=== PATIENT | male | born 1985 | race American Indian/Alaskan Native ===

== ENCOUNTER 2019-05-30 13:38 | Day surgery (SDC) | payer BC ==
[~2019-05-30] VITALS: Ht 167.6 cm; Wt 77.3 kg
[2019-05-30] MEDS ORDERED: PRIL40 PO (14:28)
[2019-05-30 14:29] VITALS: BP 117/82; PULSE 82; TEMP 97.7
[2019-05-30 16:30] VITALS: BP 119/83; PULSE 72; TEMP 98
[2019-05-30 16:45] VITALS: BP 106/69; PULSE 65
[2019-05-30 17:00] VITALS: BP 124/69; PULSE 71
--- NOTE | 2019-05-30 17:24 | NUR ---
Pt returned via cart to [facility] 6. A&O. and son in room. Tolerated water, pudding and jello. C/O some nausea after sitting upright in chair. Given saltines and sprite to settle stomach. IV removed and pressure dressing applied. Discharge teaching completed, pt and verbalized understanding. Pt dressed and taken via wheelchair to private vehicle for dc home with driving.
== END 2019-05-30 17:28 | disposition home or self-care (01) ==
LOC: SDCO 13:38
DX: K22.2 Esophageal obstruction (principal); K20.0 Eosinophilic esophagitis; Z79.899 Other long term (current) drug therapy; J45.909 Unspecified asthma, uncomplicated
CPT/HCPCS: J2250; J3010; J7030

== ENCOUNTER → 2022-03-15 | Outpatient (CLI) | payer BC ==
[~2022-03-15] MED LIST: PRIL40 PO
== END ==
LOC: COL.RAD 07:03
DX: K76.0 Fatty (change of) liver, not elsewhere classified (principal); K42.9 Umbilical hernia without obstruction or gangrene

== ENCOUNTER 2024-06-30 08:44 | Emergency (ER) | payer BC ==
[~2024-06-30] VITALS: Ht 170.2 cm; Wt 84.1 kg
[~2024-06-30 08:44] MED LIST changes: +MAG-OX 400400 MG/TAB PO; +MULTI VITAMINS1 TAB PO; +NATURAL POTASS595 MG; +NORCO 325 MG-51 TAB PO; +PYRIDIUM 100MG100 MG PO; +VITAMIN C500 MG PO; +VITAMIN D362.5 MC1 PO
[2024-06-30 09:06] VITALS: TEMP 98.1
[2024-06-30 10:24] LABS: COLLECTION METHOD CLEAN CATCH
[2024-06-30] MEDS ORDERED: Ondansetron 4 MG/2 ML VIAL IV ONE (10:30)
[2024-06-30] MEDS ORDERED: LR 1,000 ML IV ONE (10:30)
[2024-06-30] MEDS ORDERED: Morphine 4 MG/ML VIAL IV ONE (10:30)
[2024-06-30] MEDS ORDERED: Ketorolac 15 MG/ML VIAL IV ONE (10:30)
[2024-06-30 10:38] LABS: PH 6.5 (5.0-8.5); URINE APPEARANCE CLOUDY (CLEAR/HAZY); URINE BLOOD 3+ (NEGATIVE); URINE COLOR YELLOW (YELLOW); URINE GLUCOSE NEGATIVE (NEGATIVE); URINE KETONE TRACE (NEGATIVE); URINE NITRATE NEGATIVE (NEGATIVE); URINE PROTEIN(semi-quant) 1+ (NEGATIVE)
[2024-06-30 11:00] LABS: BASO % 0.4 % (0.0-2.0); EOS # 0.1 K/mm3 (0.0-0.7); EOS % 0.6 % (0.0-4.0); GRAN # 8.4 K/mm3 (1.4-6.5); GRAN % 83.3 % (42.2-75.2); HEMATOCRIT 48.7 % (42.0-52.0); HEMOGLOBIN 16.5 g/dl (13.5-18.0); LYMPH # 1.1 K/mm3 (1.2-3.4); LYMPH % 11.1 % (20.0-51.0); MEAN CELL VOLUME 91 fl (80.0-100.0); MEAN CORPUSCULAR HEMOGLOBIN 31 pg (27-31); MEAN CORPUSCULAR HGB CONC 34 g/dl (33.0-37.0); MEAN PLATELET VOLUME 10.4 fl (7.4-10.4); MONO # 0.4 K/mm3 (0.1-0.6); MONO % 4.2 % (1.7-9.3); PLATELET COUNT 233 K/mm3 (130-400); RED BLOOD COUNT 5.36 M/mm3 (4.20-5.60); REDCELL DISTRIBUTION WIDTH-CV 11.7 % (11.5-14.5)
[2024-06-30] MEDS ORDERED: Iohexol 300 - 100 ML VIAL IV ONE (11:01)
[2024-06-30] MEDS ORDERED: NS 100 ML IV SCH (11:01)
[2024-06-30 11:15] LABS: ALBUMIN 4.4 g/dL (3.5-5.0); BILIRUBIN,TOTAL 0.7 mg/dL (0.2-1.2); C-REACTIVE PROTEIN 0.09 mg/dL (0.00-0.50); CALCIUM 10.4 mg/dL (8.4-10.2); CREATININE, serum 1.2 mg/dL (0.72-1.25); POTASSIUM 4.5 mEq/L (3.5-4.5); TOTAL PROTEIN 7.3 g/dl (6.2-8.1)
[2024-06-30] MEDS ORDERED: NORCO 325 MG-51 TAB PO (11:58)
[2024-06-30 12:51] VITALS: BP 114/88; PULSE 68
== END 2024-06-30 12:40 | disposition home or self-care (01) ==
LOC: COL.ER 08:44
PROVIDERS: Family Medicine
DX: N20.1 Calculus of ureter (principal)
CPT/HCPCS: J1885; J2270; J2405; J7120; Q9967